=== PATIENT | female | born 1945 | race Caucasian/White ===

== ENCOUNTER → 2017-09-05 | Outpatient (CLI) | payer MEDICARE, OTHER ==
[~2017-09-05] MED LIST: ADULT LOW DOSE81 MG PO; ALLOPURINOL 10100 M1 PO; APAP650 PO; ASPIR-TRIN325 MG PO; ASPIRIN EC81 M1 PO; ASPIRIN325 PO; ASPIRIN81 M2; ATENOLOL 25 MG25 M1; AUGMENTIN 875875 MG PO; B12INJ; BENTYL 20 MG TA20 M1 PO; CAL-MAG-ZINC T1 EACH PO; CARVEDILOL12.5 MG PO; CINNAMON BARK1 GM; CINNAMON500 MG PO; CIPRO500 MG PO; COLACE 100 MG100 MG PO; COZAAR100 MG PO; DILTIAZEM ER120 M1; ENOXAPARIN40 MG/0.1 INJECTION; FIBER GUMMIES1 EACH PO; FIBER500 MG PO; FISH OIL + VIT1 EACH PO; FISH OIL 1,2001 EAC4 PO; GARLIC OIL1 EAC1; GARLIC OIL1000 MG PO; GLIPIZIDE ER5 MG; GLUCOPHAGE1000 MG PO; HYDROCHLOROTHIA25 M1; HYDROCHLOROTHIA25 M2 PO; LEVOTHROID100 MC1 PO; LEVOTHYROXINE100 MC1; LIPITOR 20 MG T20 M1 PO; LIPITOR20 MG PO; LIPITOR80 MG PO; LISINOPRIL5 MG PO; LOVAZA1000 MG; MOBIC15 MG; NITROGLYCERIN0.4 MG SUBLING; NORVASC10 MG PO; OXYCODONE HCL 55 MG PO; PERCOCET PO; PRAVASTATIN SOD20 MG PO; PRILOSEC40 MG PO; ROXICODONE5 MG PO; SYNTHROID100 MCG PO; TRAMADOL 50 MG50 MG PO; UNICOMPLEX M TA1 TA1 PO; VITAMIN B-121000 MCG PO; VITAMIN D31000 UNI2 PO; XARELTO10 M1 PO; XARELTO10 MG PO; ZINC50 M1 PO
== END ==
LOC: M.LAB 10:10
DX: N17.9 Acute kidney failure, unspecified (principal); E21.0 Primary hyperparathyroidism; E11.9 Type 2 diabetes mellitus without complications; E03.9 Hypothyroidism, unspecified; I10 Essential (primary) hypertension; I25.10 Atherosclerotic heart disease of native coronary artery without angina pectoris; E78.5 Hyperlipidemia, unspecified

== ENCOUNTER → 2017-09-19 | Outpatient (CLI) | payer MEDICARE, OTHER | LOC: M.NUC 09-07 08:01 | DX: E21.0 Primary hyperparathyroidism (principal); I20.9 Angina pectoris, unspecified; N17.9 Acute kidney failure, unspecified; E11.9 Type 2 diabetes mellitus without complications; E03.9 Hypothyroidism, unspecified; I10 Essential (primary) hypertension; E78.5 Hyperlipidemia, unspecified; Z95.1 Presence of aortocoronary bypass graft ==

== ENCOUNTER → 2017-10-14 | Outpatient (CLI) | payer MEDICARE, OTHER ==
[2017-10-14 18:07] LABS: PARATHYROID HORMONE 70 pg/mL (15-65); eGFR IF AFRICAN AMERICAN 66 (>59)
== END ==
LOC: M.LAB 12:53
PROVIDERS: Internal Medicine
DX: E83.52 Hypercalcemia (principal)

== ENCOUNTER → 2017-12-06 | Outpatient (CLI) | payer MEDICARE, OTHER ==
[2017-12-06 10:19] LABS: ABSOLUTE BASOPHILS 0.1 thou/uL (0.0-0.2); ABSOLUTE EOSINOPHILS 0.3 thou/uL (0.0-0.7); ABSOLUTE LYMPHOCYTES 1.2 thou/uL (0.8-5.3); ABSOLUTE MONOCYTES 0.4 thou/uL (0.0-1.2); ABSOLUTE NEUTROPHILS 3.6 thou/uL (1.6-8.1); BASOPHILS 1.1 %; EOSINOPHILS 5.2 %; HEMOGLOBIN 13.1 gm/dL (12.0-15.0); LYMPHOCYTES 22.2 %; MCH 30.4 pg (26.0-34.0); MCHC 32.6 g/dL (28.0-37.0); MCV 93.1 fL (80.0-100.0); MPV 8.2 fl. (7.2-11.1); NUCLEATED RBCS 0 /100WBC; PLATELET COUNT* 209 thou/uL (150-400); POLYS 64.5 %; RDW-CV 13.7 % (10.5-14.5); WBC 5.6 thou/uL (4.0-11.0)
[2017-12-06 10:36] LABS: CALCIUM 9.2 mg/dL (8.5-10.1); CREATININE 1.1 mg/dL (0.6-1.3); MAGNESIUM 1.7 mg/dL (1.8-2.4); PHOSPHORUS* 2.9 mg/dL (2.5-4.9)
[2017-12-06 12:38] LABS: URINE BILIRUBIN NEGATIVE (Negative); URINE BLOOD 3+ (Negative); URINE CLARITY CLEAR; URINE COLOR YELLOW; URINE GLUCOSE-RANDOM NEGATIVE (Negative); URINE KETONES NEGATIVE (Negative); URINE LEUKOCYTES NEGATIVE (Negative); URINE NITRITE NEGATIVE (Negative); URINE PROTEIN TRACE (Negative); URINE SPECIFIC GRAVITY >= 1.030 (1.005-1.030); URINE UROBILINOGEN 0.2 E.U./dl (0.2-1.0)
[2017-12-06 12:47] LABS: BACTERIA 1-9 Few /HPF (None Seen); CASTS None Seen /LPF (None Seen); CRYSTALS None Seen /LPF (None Seen); MUCUS 4-6 Moderate strn/LPF (None Seen); SQUAMOUS 4-10 Moderate /LPF (0-3); URINE WBC 0-5 Rare /HPF (0-5)
[2017-12-06 21:07] LABS: eGFR IF AFRICAN AMERICAN 74 (>59)
[2017-12-07 10:10] LABS: PARATHYROID HORMONE 102 pg/mL (15-65)
== END ==
LOC: M.LAB 09:34
PROVIDERS: Internal Medicine
DX: N17.9 Acute kidney failure, unspecified (principal)

== ENCOUNTER 2018-02-17 09:06 | Emergency (ER) | payer MEDICARE, OTHER ==
[~2018-02-17] VITALS: Ht 162.6 cm; Wt 100.3 kg
[~2018-02-17 09:06] MED LIST changes: -BENTYL 20 MG TA20 M1 PO; -ZINC50 M1 PO
[2018-02-17] MEDS ORDERED: ZINC50 M1 PO (09:28)
[2018-02-17 10:13] LABS: ABSOLUTE BASOPHILS 0.1 thou/uL (0.0-0.2); ABSOLUTE EOSINOPHILS 0.2 thou/uL (0.0-0.7); ABSOLUTE LYMPHOCYTES 1.1 thou/uL (0.8-5.3); ABSOLUTE MONOCYTES 0.3 thou/uL (0.0-1.2); ABSOLUTE NEUTROPHILS 2.7 thou/uL (1.6-8.1); BASOPHILS 1.4 %; HEMATOCRIT 39.8 % (37.0-47.0); HEMOGLOBIN 13.1 gm/dL (12.0-15.0); LYMPHOCYTES 25.1 %; MCH 30.6 pg (26.0-34.0); MCV 92.8 fL (80.0-100.0); MONOCYTES 7.9 %; NUCLEATED RBCS 0 /100WBC; PLATELET COUNT* 217 thou/uL (150-400); POLYS 60.6 %; RBC 4.29 mil/uL (4.20-5.00); RDW-CV 13.9 % (10.5-14.5); WBC 4.4 thou/uL (4.0-11.0)
[2018-02-17 10:18] LABS: CALCIUM 9.3 mg/dL (8.5-10.1); POTASSIUM 3.6 mmol/L (3.5-5.1)
[2018-02-17 10:22] LABS: ALBUMIN 3.7 g/dL (3.4-5.0); TOTAL BILIRUBIN 0.8 mg/dL (<0.1-1.0)
[2018-02-17 10:24] LABS: URINE BILIRUBIN NEGATIVE (Negative); URINE BLOOD NEGATIVE (Negative); URINE CLARITY CLEAR; URINE COLOR YELLOW; URINE GLUCOSE-RANDOM NEGATIVE (Negative); URINE KETONES NEGATIVE (Negative); URINE LEUKOCYTES-REFLEX NEGATIVE (Negative); URINE NITRITE-REFLEX NEGATIVE (Negative); URINE PROTEIN NEGATIVE (Negative); URINE SPECIFIC GRAVITY <= 1.005 (1.005-1.030); URINE UROBILINOGEN 0.2 E.U./dl (0.2-1.0)
[2018-02-17] MEDS ORDERED: BENTYL 20 MG TA20 M1 PO (12:07)
[2018-02-17 12:29] VITALS: BP 183/98
--- NOTE | 2018-02-17 14:52 | EKG ---
[place] [address] ELECTROCARDIOGRAM REPORT Name: ANJU STYLES Room: [facility]#: [id number] Admission: 02/17/18 Attend Phys: Discharge: 02/17/18 Date of : 47 Report #: [id number] THIS REPORT FOR: //name// [facility] [place] ED Test Date: 2018-02-17 Test Time: 09:15:33 Pat Name: ANJU STYLES Department: Room: Gender: F [employer]: : 1945 Requested By: Grazyna Arcos Order Number: [id number] MD: Rayo Thompson Measurements Intervals [place] Rate: 70 P: -26 SC: 170 QRS: -6 QRSD: 86 T: 7 QT: 407 QTc: 440 Interpretive Statements Sinus rhythm Atrial premature complex Probable anterior infarct, age indeterminate Compared to ECG 12/30/2016 08:46:15 no change Electronically Signed On 02-17-2018 14:51:49 CDT by Rayo Thompson [email or web address] <ELECTRONICALLY SIGNED> By: Rayo Thompson MD, [facility] 02/17/18 1451 4 4 Rayo Thompson MD, FACC /EPI
== END 2018-02-17 12:29 | disposition home or self-care (01) ==
LOC: M.ERS 09:06
PROVIDERS: Personal Emergency Response Attendant
DX: K59.00 Constipation, unspecified (principal); E11.9 Type 2 diabetes mellitus without complications; I10 Essential (primary) hypertension; E03.9 Hypothyroidism, unspecified; Z79.4 Long term (current) use of insulin; Z88.1 Allergy status to other antibiotic agents

== ENCOUNTER → 2018-03-14 | Outpatient (CLI) | payer MEDICARE, OTHER ==
[~2018-03-14] MED LIST changes: +BENTYL 20 MG TA20 M1 PO; +ZINC50 M1 PO
== END ==
LOC: M.RAD 03-13 10:40 → M.ULTRA 03-13 11:00 → M.RAD 03-13 15:00
DX: N63.10 Unspecified lump in the right breast, unspecified quadrant (principal); N63.20 Unspecified lump in the left breast, unspecified quadrant; R92.8 Other abnormal and inconclusive findings on diagnostic imaging of breast

== ENCOUNTER 2019-06-29 04:46 | Emergency (ER) | payer MEDICARE, OTHER ==
[~2019-06-29] VITALS: Ht 165.1 cm; Wt 113.4 kg
[2019-06-29] MEDS ORDERED: ALLOPURINOL 10100 M3 PO (04:56)
[2019-06-29 05:52] VITALS: BP 177/93
== END 2019-06-29 05:52 | disposition home or self-care (01) ==
LOC: M.ERS 04:46
DX: R04.0 Epistaxis (principal); I10 Essential (primary) hypertension; E03.9 Hypothyroidism, unspecified; E11.9 Type 2 diabetes mellitus without complications; Z88.1 Allergy status to other antibiotic agents

== ENCOUNTER 2019-07-09 07:51 | Emergency (ER) | payer MEDICARE, OTHER ==
[~2019-07-09] VITALS: Ht 165.1 cm; Wt 90.7 kg
[~2019-07-09 07:51] MED LIST changes: +ALLOPURINOL 10100 M3 PO
[2019-07-09 08:28] LABS: ABSOLUTE BASOPHILS 0.1 thou/uL (0.0-0.2); ABSOLUTE EOSINOPHILS 0.2 thou/uL (0.0-0.7); ABSOLUTE LYMPHOCYTES 1.1 thou/uL (0.8-5.3); ABSOLUTE MONOCYTES 0.4 thou/uL (0.0-1.2); ABSOLUTE NEUTROPHILS 4.4 thou/uL (1.6-8.1); EOSINOPHILS 2.9 %; HEMATOCRIT 37.1 % (37.0-47.0); HEMOGLOBIN 12.5 gm/dL (12.0-15.0); LYMPHOCYTES 17.5 %; MCH 30.8 pg (26.0-34.0); MCHC 33.7 g/dL (28.0-37.0); MCV 91.2 fL (80.0-100.0); MONOCYTES 7.2 %; MPV 7.9 fl. (7.2-11.1); NUCLEATED RBCS 0 /100WBC; PLATELET COUNT* 224 thou/uL (150-400); POLYS 71.4 %; RBC 4.07 mil/uL (4.20-5.00); RDW-CV 13.3 % (10.5-14.5); WBC 6.1 thou/uL (4.0-11.0)
[2019-07-09 08:39] LABS: CALCIUM 9.5 mg/dL (8.5-10.1); CREATININE 1.1 mg/dL (0.6-1.3); POTASSIUM 4.1 mmol/L (3.5-5.1)
[2019-07-09 08:41] LABS: APTT 26.4 Seconds (25.0-31.3); INR 1.1; PROTIME 11.1 Seconds (9.20-11.50)
[2019-07-09 08:43] LABS: ALBUMIN 3.5 g/dL (3.4-5.0); TOTAL BILIRUBIN 0.6 mg/dL (<0.1-1.0); TOTAL PROTEIN 6.8 g/dL (6.4-8.2)
[2019-07-09 09:42] VITALS: BP 192/90
== END 2019-07-09 09:44 | disposition home or self-care (01) ==
LOC: M.ERS 07:51
PROVIDERS: Family Medicine
DX: R04.0 Epistaxis (principal); I10 Essential (primary) hypertension; E11.9 Type 2 diabetes mellitus without complications; E03.9 Hypothyroidism, unspecified; Z96.651 Presence of right artificial knee joint; Z88.1 Allergy status to other antibiotic agents